=== PATIENT | female | born 1995 ===

== ENCOUNTER 2016-10-18 17:54 | Emergency (ER) | payer MEDICAID ==
[2016-10-18 18:24] VITALS: RESP 18; O2SAT 100
[2016-10-18] MEDS ORDERED: Belladonna-Phenobarbital PO STA (19:56)
[2016-10-18] MEDS ORDERED: Lidocaine 2% Viscous 100 ml PO STA (19:56)
[2016-10-18] MEDS ORDERED: Sodium Chloride 0.9% 500 ML IV ONE ×2 (19:56→20:14)
[2016-10-18] MEDS ORDERED: Aluminum Hydroxide/Magnesium Hydroxide Susp (30 mL) PO STA (19:56)
--- NOTE | 2016-10-18 20:00 | C.PDOC ---
History Of Present Illness 20 yr old female presents to the ER with complaints of epigastric pain which radiates up to the chest for the past 2 days. Patient states she never had this type of pain before and is associated with nausea. Patient denies trauma, fever , SOB, vomiting, diarrhea, dysuria, hematuria, back pain, weakness or numbness. Time Seen by Provider: 10/18/16 19:36 Chief Complaint (Nursing): Abdominal Pain History Per: Patient History/Exam Limitations: no limitations Onset/Duration Of Symptoms: Days (2) Current Symptoms Are (Timing): Still Present Past Medical History Reviewed: Historical Data, Nursing Documentation, Vital Signs Vital Signs: Last Vital Signs Temp 98.4 F 10/18/16 21:41 Pulse 72 10/18/16 21:41 Resp 18 10/18/16 21:41 BP 92/62 L 10/18/16 21:41 Pulse Ox 100 10/18/16 21:41 Family History: States: No Known Family Hx - Social History Hx Alcohol Use: No Hx Substance Use: No - Immunization History Hx Tetanus Toxoid Vaccination: No Hx Influenza Vaccination: No Hx Pneumococcal Vaccination: No Review Of Systems Except As Marked, All Systems Reviewed And Found Negative. Constitutional: Negative for: Fever Cardiovascular: Positive for: Chest Pain Respiratory: Negative for: Shortness of Breath Gastrointestinal: Positive for: Nausea, Abdominal Pain (Epigastric ). Negative for: Vomiting, Diarrhea Genitourinary: Negative for: Dysuria, Hematuria Musculoskeletal: Negative for: Back Pain Neurological: Negative for: Weakness, Numbness Physical Exam - Physical Exam Appears: Non-toxic, No Acute Distress Skin: Warm, Dry, No Rash Head: Atraumatic, Normacephalic Eye(s): bilateral: Normal Inspection, PERRL, EOMI Oral Mucosa: Moist Neck: Normal, Normal ROM, Supple Chest: Symmetrical, No Tenderness Cardiovascular: Rhythm Regular, No Friction Rub, No Murmur Respiratory: Normal Breath Sounds, No Rales, No Rhonchi, No Stridor, No Wheezing Gastrointestinal/Abdominal: Normal Exam, Soft, No Tenderness, No Guarding, No Rebound Back: Normal Inspection, No CVA Tenderness, No Vertebral Tenderness Extremity: Normal ROM, No Swelling Neurological/Psych: Oriented x3, Normal Speech, Normal Motor, Normal Sensation Gait: Steady ED Course And Treatment - Laboratory Results Result Diagrams: 10/18/16 20:15 10/18/16 20:15 ECG: Interpreted By Me, Viewed By Me ECG Rhythm: Sinus Rhythm ECG Interpretation: No Acute Changes Rate From EC (BPM) O2 Sat by Pulse Oximetry: 100 (RA ) Pulse Ox Interpretation: Normal - Radiology CXR: Interpreted by Me CXR Interpretation: Yes: No Acute Disease. No: Infiltrates Medical Decision Making Medical Decision Making: PLAN: * CXR * CBC * HCG Urine * Urinalysis * PO * Maalox PO * Lidocaine Viscous PO * Pepcid IVP * Zofran IVP * Sodium Chloride IV Urine shows 1+ leuks but pt has no symptoms of dysuria or UTI. On re-exam, the patient reports improvement of symptoms. Lungs remain CTA, heart is RRR, abdomen is soft, non-tender and tolerating PO well. Ambulatory in the ED with steady gait. Follow up with the medical doctor within 1-2 days without fail, Return if worsened. Disposition - Disposition Referrals: Yoni Watkins, CHARLENE, SQL REPORT DEVELOPER [Family Provider] - Disposition: HOME/ ROUTINE Disposition Time: 21:00 Condition: GOOD Additional Instructions: Follow up with the medical doctor within 1-2 days without fail, Return if worsened, Prescriptions: Naproxen [Naprosyn] 500 mg PO BID #20 tab Famotidine [Pepcid] 20 mg PO BID #20 tab Instructions: Gastritis (ED) - Clinical Impression Clinical Impression: Gastritis - PA / TOY PAINTER / Resident Statement MD/DO has reviewed & agrees with the documentation as recorded. - Scribe Statement The provider has reviewed the documentation as recorded by the Scribe Torri Garcia All medical record entries made by the Scribe were at my direction and personally dictated by me. I have reviewed the chart and agree that the record accurately reflects my personal performance of the history, physical exam, medical decision making, and the department course for this patient. I have also personally directed, reviewed, and agree with the discharge instructions and disposition.
[2016-10-18] MEDS ORDERED: Belladonna-Phenobarbital ONE (20:13)
[2016-10-18] MEDS ORDERED: Aluminum Hydroxide/Magnesium Hydroxide Susp (30 mL) ONE (20:13)
[2016-10-18 20:19] LABS: BASO % 0.5 % (0.0-2.0); EOS % 0.7 % (0.0-4.0); HEMATOCRIT 40.7 % (34.0-47.0); LYMPH # 0.9 K/uL (1.0-4.3); LYMPH % 17.7 % (20.0-40.0); MEAN CELL VOLUME 83.1 fL (81.0-99.0); MEAN CORPUSCULAR HEMOGLOBIN 26.7 pg (27.0-31.0); MEAN CORPUSCULAR HGB CONC 32.1 g/dL (33.0-37.0); MEAN PLATELET VOLUME 8.4 fL (7.2-11.7); MONO # 0.6 K/uL (0.0-0.8); MONO % 10.8 % (0.0-10.0); WHITE BLOOD COUNT 5.3 K/uL (4.8-10.8)
[2016-10-18 20:24] LABS: CHLORIDE 95 mmol/L (98-107); RBC URINE 7 /hpf (0-3); SODIUM 137 mmol/L (132-148); URINE BACTERIA FEW (<OCC); URINE BILIRUBIN NEGATIVE (NEGATIVE); URINE BLOOD 2+ (NEGATIVE); URINE COLOR Yellow (YELLOW); URINE GLUCOSE (UA) NORMAL (Normal); URINE KETONE TRACE mg/dL (NEGATIVE); URINE LEUKOCYTE ESTERASE 1+ Leu/uL (Negative); URINE PROTEIN NEGATIVE (NEGATIVE); WBC URINE 15 /hpf (0-5)
[2016-10-18 20:25] LABS: POTASSIUM 3.4 mmol/L (3.6-5.2)
[2016-10-18 20:26] LABS: GFR AFRICAN-AMERICAN > 60
[2016-10-18 20:27] LABS: ALB/GLOB RATIO 1.3 (1.0-2.1); ALKALINE PHOSPHATASE 58 U/L (38-126); ALT/SGPT 18 U/L (9-52); AST/SGOT 18 U/L (14-36); BILIRUBIN,TOTAL 0.6 mg/dL (0.2-1.3); BLOOD UREA NITROGEN 10 mg/dL (7-17); CARBON DIOXIDE 26 mmol/L (22-30); GLUCOSE,RANDOM 82 mg/dL (65-105); TOTAL PROTEIN 7.5 g/dL (6.3-8.3)
[2016-10-18 20:28] LABS: CALCIUM 8.5 mg/dl (8.6-10.4)
[2016-10-18 21:43] VITALS: BP 92/62; PULSE 72; TEMP 98.4
--- NOTE | 2016-10-19 08:17 | RAD ---
PROCEDURE: CHEST RADIOGRAPH, 1 VIEW HISTORY: Epigastric abdominal pain COMPARISON: None available. FINDINGS: LUNGS: Clear. PLEURA: No pneumothorax or pleural fluid seen. CARDIOVASCULAR: Normal. OSSEOUS STRUCTURES: No significant abnormalities. VISUALIZED UPPER ABDOMEN: Normal. OTHER FINDINGS: None. IMPRESSION: No active disease.
== END 2016-10-18 21:43 | disposition home or self-care (01) ==
LOC: C.ER 17:54
DX: K29.70 Gastritis, unspecified, without bleeding (principal)
CPT/HCPCS: 71010; 80053; 81001; 83690; 84703; 85025; 96374; 96375; 99285; J1885; J2405; J7040

== ENCOUNTER 2017-02-07 22:41 | Emergency (ER) | payer MEDICAID ==
[2017-02-07 22:49] VITALS: O2SAT 99
--- NOTE | 2017-02-07 23:04 | C.PDOC ---
History Of Present Illness 21 year old female who presents to the ER with a complaint of left sided chest pain since yesterday. Patient describes it as sharp left sided pain, at times in her neck as well. Denies fever, chills, SOB, or other complaints. no inciting factors. no recent travel/sx/h/of blood clot Time Seen by Provider: 02/07/17 23:00 Chief Complaint (Nursing): Chest Pain History Per: Patient History/Exam Limitations: no limitations Onset/Duration Of Symptoms: Hrs, Sudden Onset Current Symptoms Are (Timing): Still Present Quality: Sharp Associated Symptoms: denies: Nausea, Dyspnea, Diaphoresis Modifying Factors: None Exacerbating Factors: None Alleviating Factors: None Recent travel outside of the [place]: No Past Medical History Reviewed: Historical Data, Nursing Documentation, Vital Signs Vital Signs: Last Vital Signs Temp 98.7 F 02/07/17 22:46 Pulse 85 02/07/17 22:46 Resp 14 02/07/17 22:46 BP 116/79 02/07/17 22:46 Pulse Ox 99 02/07/17 23:57 - Medical History PMH: No Chronic Diseases Surgical History: No Surg Hx Family History: States: Unknown Family Hx - Social History Hx Alcohol Use: No Hx Substance Use: No - Immunization History Hx Tetanus Toxoid Vaccination: No Hx Influenza Vaccination: No Hx Pneumococcal Vaccination: No Review Of Systems Except As Marked, All Systems Reviewed And Found Negative. Constitutional: Negative for: Fever, Chills Cardiovascular: Positive for: Chest Pain Respiratory: Negative for: Shortness of Breath Physical Exam - Physical Exam Appears: Non-toxic, No Acute Distress Skin: Normal Color, Warm, Dry Head: Atraumatic, Normacephalic Oral Mucosa: Moist Chest: Symmetrical, Tenderness (Left sided) Cardiovascular: Rhythm Regular, No Murmur Respiratory: Normal Breath Sounds, No Rales, No Rhonchi, No Wheezing Gastrointestinal/Abdominal: Soft, No Tenderness Neurological/Psych: Oriented x3, Normal Speech, Normal Cognition ED Course And Treatment - Laboratory Results Result Diagrams: 02/07/17 23:10 02/07/17 23:10 ECG: Interpreted By Me, Viewed By Me ECG Rhythm: Sinus Rhythm Interpretation Of ECG: No st/t wave changes, PERC negative Rate From EC O2 Sat by Pulse Oximetry: 99 (Room air) Pulse Ox Interpretation: Normal Medical Decision Making Medical Decision Making: Impression: 21 year old female with chest wall tenderness. Plan: * Blood work * CXR * Urinalysis * Tylenol * PERC neg. labs unremarkable cxr neg as read by me. pt comfortable. pain improved. speaking full sentneces innad. stable for d/c pt denies urianry symptoms, suspect dirty sample Disposition - Disposition Referrals: Orion Diaz MD [Staff Provider] - Disposition: HOME/ ROUTINE Disposition Time: 23:56 Condition: STABLE Additional Instructions: please follow up with your doctor/specialist. return to er with worsening symptoms or concerns. Instructions: Chest Pain (ED) - Clinical Impression Clinical Impression: Chest pain - Scribe Statement The provider has reviewed the documentation as recorded by the Scribmaddy Hwang All medical record entries made by the Scribe were at my direction and personally dictated by me. I have reviewed the chart and agree that the record accurately reflects my personal performance of the history, physical exam, medical decision making, and the department course for this patient. I have also personally directed, reviewed, and agree with the discharge instructions and disposition.
[2017-02-07 23:13] LABS: BASO # 0.1 K/uL (0.0-0.2); BASO % 0.6 % (0.0-2.0); EOS # 0.1 K/uL (0.0-0.7); EOS % 0.7 % (0.0-4.0); HEMOGLOBIN 12.9 g/dL (11.0-16.0); LYMPH # 2.2 K/uL (1.0-4.3); LYMPH % 26.6 % (20.0-40.0); MEAN CELL VOLUME 83.8 fL (81.0-99.0); MEAN CORPUSCULAR HEMOGLOBIN 27.5 pg (27.0-31.0); MEAN CORPUSCULAR HGB CONC 32.8 g/dL (33.0-37.0); MONO # 0.6 K/uL (0.0-0.8); MONO % 7.7 % (0.0-10.0); NEUT # 5.4 K/uL (1.8-7.0); NEUT % 64.4 % (50.0-75.0); NRBC % 0.1 % (0.0-2.0); RBC 4.69 Mil/uL (3.80-5.20); RED CELL DISTRIBUTION WIDTH 13.2 % (11.5-14.5)
[2017-02-07 23:15] LABS: WHITE BLOOD COUNT 8.4 K/uL (4.8-10.8)
[2017-02-07 23:22] LABS: INR 1.1; PROTHROMBIN TIME 12.2 SECONDS (9.7-12.2)
[2017-02-07 23:45] LABS: ALBUMIN 4.2 g/dL (3.5-5.0)
[2017-02-07 23:46] LABS: SQUAMOUS EPITHIAL 15 /hpf (0-5); URINE BACTERIA FEW (<OCC); URINE BILIRUBIN NEGATIVE (NEGATIVE); URINE BLOOD NEGATIVE (NEGATIVE); URINE CLARITY Hazy (Clear); URINE COLOR Yellow (YELLOW); URINE GLUCOSE (UA) NORMAL (Normal); URINE LEUKOCYTE ESTERASE 2+ Leu/uL (Negative); URINE NITRATE NEGATIVE (NEGATIVE); URINE PROTEIN NEGATIVE (NEGATIVE); URINE UROBILINOGEN NORMAL mg/dL (0.2-1.0)
[2017-02-07 23:47] LABS: HCG,QUALITATIVE URINE NEGATIVE (NEGATIVE)
[2017-02-07 23:48] LABS: AST/SGOT 18 U/L (14-36); GFR AFRICAN-AMERICAN > 60; GFR NON-AFRICAN AMERICAN > 60
[2017-02-07 23:49] LABS: ALB/GLOB RATIO 1.3 (1.0-2.1); ALT/SGPT 25 U/L (9-52); BLOOD UREA NITROGEN 11 mg/dL (7-17); CALCIUM 9.5 mg/dl (8.6-10.4)
[2017-02-08 00:20] VITALS: BP 101/65; PULSE 60; RESP 16; TEMP 98.3
--- NOTE | 2017-02-08 07:36 | RAD ---
HISTORY: SOB COMPARISON: Chest x-ray performed 10/18/16 TECHNIQUE: Chest PA and lateral FINDINGS: LUNGS: No focal consolidation. Please note that chest x-ray has limited sensitivity for the detection of pulmonary masses. PLEURA: No significant pleural effusion identified. No definite pneumothorax . CARDIOVASCULAR: The cardiomediastinal silhouette appears within normal limits of size. OSSEOUS STRUCTURES: No acute osseous abnormality identified. VISUALIZED UPPER ABDOMEN: Unremarkable. OTHER FINDINGS: None. IMPRESSION: No focal consolidation, significant pleural effusion, or definite pneumothorax identified.
== END 2017-02-08 00:20 | disposition home or self-care (01) ==
LOC: C.ER 22:41
DX: R07.89 Other chest pain (principal)

== ENCOUNTER → 2017-08-09 22:22 | Emergency (ER) | payer MEDICAID | END | disposition left against medical advice (07) | LOC: C.ER 22:22 | DX: Z02.89 Encounter for other administrative examinations (principal); R05 Cough ==

== ENCOUNTER 2017-08-10 19:14 | Emergency (ER) | payer MEDICAID ==
[2017-08-10] MEDS ORDERED: Sodium Chloride 0.9% 1,000 ML ONE (19:55)
--- NOTE | 2017-08-10 20:06 | C.PDOC ---
History Of Present Illness 21 y/o female presents to the ER complaining of left-sided abdominal pain which has been present since yesterday. Patient reports that the pain is sharp and radiates to her groin. Patient is complaining of mild nausea and dysuria. Patient denies any fever and diarrhea. Chief Complaint (Nursing): Abdominal Pain History Per: Patient History/Exam Limitations: no limitations Onset/Duration Of Symptoms: Days Current Symptoms Are (Timing): Still Present Severity: Moderate Quality Of Discomfort: Sharp Associated Symptoms: Nausea. denies: Vomiting, Diarrhea Past Medical History Reviewed: Historical Data, Nursing Documentation, Vital Signs Vital Signs: Last Vital Signs Temp 98.4 F 08/10/17 19:23 Pulse 93 H 08/10/17 19:23 Resp 16 08/10/17 19:23 BP 115/79 08/10/17 19:23 Pulse Ox 100 08/10/17 22:37 - Medical History PMH: No Chronic Diseases Surgical History: No Surg Hx Family History: States: No Known Family Hx - Social History Hx Alcohol Use: No Hx Substance Use: No - Immunization History Hx Tetanus Toxoid Vaccination: No Hx Influenza Vaccination: No Hx Pneumococcal Vaccination: No Review Of Systems Except As Marked, All Systems Reviewed And Found Negative. Constitutional: Negative for: Fever, Chills Gastrointestinal: Positive for: Nausea, Abdominal Pain. Negative for: Vomiting , Diarrhea Genitourinary: Positive for: Dysuria Physical Exam - Physical Exam Appears: Non-toxic, No Acute Distress Skin: Normal Color, Warm Head: Atraumatic, Normacephalic Eye(s): bilateral: Normal Inspection, PERRL Nose: Normal Oral Mucosa: Moist Neck: Supple Chest: Symmetrical Cardiovascular: Rhythm Regular Respiratory: Normal Breath Sounds, No Accessory Muscle Use, No Rales, No Rhonchi , No Wheezing Gastrointestinal/Abdominal: Normal Exam, Soft, Tenderness (tenderness on left side of abdomen and periumbilical region) Extremity: Normal ROM Neurological/Psych: Oriented x3, Normal Speech, Normal Cognition, Normal Motor, Normal Sensation ED Course And Treatment - Laboratory Results Result Diagrams: 08/10/17 20:02 08/10/17 20:02 O2 Sat by Pulse Oximetry: 100 (RA) Pulse Ox Interpretation: Normal Medical Decision Making Medical Decision Making: Plan: -- Abd. & Pelv. CT --Labs Disposition Counseled Patient/Family Regarding: Diagnosis - Disposition Referrals: [facility] [Outside] Disposition: HOME/ ROUTINE Disposition Time: 22:36 Condition: STABLE Prescriptions: Ciprofloxacin [Cipro] 1 tab PO BID #14 tab Ibuprofen [Motrin] 1 tab PO TID PRN #30 tab PRN Reason: Pain Instructions: Urinary Tract Infection in Women (DC) Forms: [facility] (Romanian) - POA Present On Arrival: None - Clinical Impression Clinical Impression: Urinary tract infection - Scribe Statement The provider has reviewed the documentation as recorded by the Akila Welch Provider Attestation: All medical record entries made by the Katiaibe were at my direction and personally dictated by me. I have reviewed the chart and agree that the record accurately reflects my personal performance of the history, physical exam, medical decision making, and the department course for this patient. I have also personally directed, reviewed, and agree with the discharge instructions and disposition.
[2017-08-10 20:07] LABS: BASO % 0.6 % (0.0-2.0); EOS # 0.1 K/uL (0.0-0.7); EOS % 3.1 % (0.0-4.0); HEMOGLOBIN 12.9 g/dL (11.0-16.0); LYMPH # 1.2 K/uL (1.0-4.3); LYMPH % 32.2 % (20.0-40.0); MEAN CORPUSCULAR HEMOGLOBIN 27.9 pg (27.0-31.0); MEAN CORPUSCULAR HGB CONC 33.3 g/dL (33.0-37.0); MONO # 0.4 K/uL (0.0-0.8); MONO % 10.2 % (0.0-10.0); NEUT % 53.9 % (50.0-75.0); RBC 4.61 Mil/uL (3.80-5.20); RED CELL DISTRIBUTION WIDTH 13.5 % (11.5-14.5); WHITE BLOOD COUNT 3.7 K/uL (4.8-10.8)
[2017-08-10 20:14] LABS: SQUAMOUS EPITHIAL 2 /hpf (0-5); URINE BACTERIA RARE (<OCC); URINE BILIRUBIN 1+ (NEGATIVE); URINE BLOOD 3+ (NEGATIVE); URINE CLARITY Clear (Clear); URINE COLOR Yellow (YELLOW); URINE GLUCOSE (UA) NORMAL (Normal); URINE LEUKOCYTE ESTERASE NEG Leu/uL (Negative); URINE NITRATE NEGATIVE (NEGATIVE); URINE PROTEIN 1+ mg/dL (NEGATIVE)
[2017-08-10 20:21] LABS: ALB/GLOB RATIO 1.1 (1.0-2.1); ALBUMIN 4.1 g/dL (3.5-5.0); ALT/SGPT 22 U/L (9-52); AST/SGOT 21 U/L (14-36); BLOOD UREA NITROGEN 11 mg/dL (7-17); CALCIUM 8.7 mg/dl (8.6-10.4); GFR AFRICAN-AMERICAN > 60; GFR NON-AFRICAN AMERICAN > 60; LIPASE 98 U/L (23-300)
--- NOTE | 2017-08-10 21:29 | CT ---
EXAM: CT Abdomen and Pelvis Without Intravenous Contrast CLINICAL HISTORY: 21 years old, female; Pain and signs and symptoms; Other: Dysuria; Abdominal pain; Localized; Left; Additional info: Left flank pain/ dysuria TECHNIQUE: Axial computed tomography images of the abdomen and pelvis without intravenous contrast. All CT scans at this facility use one or more dose reduction techniques, viz.: automated exposure control; ma/kV adjustment per patient size (including targeted exams where dose is matched to indication; i.e. head); or iterative reconstruction technique. Coronal and sagittal reformatted images were created and reviewed. COMPARISON: CT - ABD PELVIS IV CONTRAST ONLY 2017-05-31 23:36 FINDINGS: Lower thorax: No acute findings. ABDOMEN: Liver: Unremarkable. Gallbladder and bile ducts: No calcified stones. No ductal dilation. Pancreas: Unremarkable. No ductal dilation. Spleen: Mild splenomegaly, AP dimension. Adrenals: No mass. Kidneys and ureters: No renal calculi. No hydronephrosis. Stomach and bowel: No definite mural thickening. No obstruction. Appendix: Normal caliber. No inflammation. PELVIS: Bladder: Borderline bladder wall thickening, up to 5 mm. Incomplete distention, limiting evaluation. No stones. Reproductive: Unremarkable as visualized. ABDOMEN and PELVIS: Intraperitoneal space: No significant fluid collection. No free air. Bones/joints: No acute fracture. Soft tissues: Unremarkable. Vasculature: Unremarkable. No aneurysm. Lymph nodes: No pathologically enlarged lymph nodes. IMPRESSION: 1. Mild cystitis vs underdistention. Correlate with urinalysis. 2. Incidental/non-acute findings are described above.
[2017-08-10 22:52] VITALS: BP 118/70; PULSE 81; RESP 20; TEMP 97.1; O2SAT 98
== END 2017-08-10 22:52 | disposition home or self-care (01) ==
LOC: C.ER 19:14
DX: N39.0 Urinary tract infection, site not specified (principal)
CPT/HCPCS: 74176; 80053; 81001; 83690; 84703; 85025; 87086; 96361; 96374; 99284; J1885

== ENCOUNTER 2018-08-21 12:19 | Emergency (ER) | payer MEDICAID, OTHER ==
--- NOTE | 2018-08-21 13:15 | C.PDOC ---
History Of Present Illness 22 y/o cholo, lmp 08/05, one sexual partner, has unprotected sex, c/o vaignal painl, clear vaignal discharge sinc fri with nausea. low back and pain dysuriua. no hx gc. chlmaydia Time Seen by Provider: 08/21/18 12:47 Chief Complaint (Nursing): Female Genitourinary History Per: Patient History/Exam Limitations: no limitations Onset/Duration Of Symptoms: Days Current Symptoms Are (Timing): Still Present Past Medical History Reviewed: Historical Data, Nursing Documentation, Vital Signs Vital Signs: Last Vital Signs Temp 98.0 F 08/21/18 12:33 Pulse 80 08/21/18 12:33 Resp 20 08/21/18 12:33 BP 120/81 08/21/18 12:33 Pulse Ox 99 08/21/18 12:33 - Medical History PMH: No Chronic Diseases Surgical History: No Surg Hx Family History: States: Unknown Family Hx - Social History Hx Alcohol Use: No Hx Substance Use: No - Immunization History Hx Tetanus Toxoid Vaccination: No Hx Influenza Vaccination: No Hx Pneumococcal Vaccination: No Review Of Systems Genitourinary: Positive for: Dysuria, Vaginal Discharge Musculoskeletal: Positive for: Back Pain (lower) Physical Exam - Physical Exam Appears: Non-toxic, No Acute Distress Skin: Normal Color, Warm, Dry Eye(s): bilateral: Normal Inspection Oral Mucosa: Moist Neck: Supple Gastrointestinal/Abdominal: Soft, No Tenderness, No Guarding, No Rebound Pelvic: Vaginal Discharge (beige-white, noted in vault ), No Cervical Motion Tenderness, Adnexal Tenderness (mild, left-sided ) Extremity: Normal ROM, Capillary Refill (less than 2 seconds) Neurological/Psych: Oriented x3, Normal Speech, Normal Cognition ED Course And Treatment O2 Sat by Pulse Oximetry: 99 (on RA) Pulse Ox Interpretation: Normal Medical Decision Making Medical Decision Making: Progress: Urinalysis ordered and GC/Chlamydia swab ordered and reviewed. no cmt on exam, mild left adnexal tenderness. will not tx for sti at this time. await cuture. will give macrobid and metrogel with weld engineer f/u Disposition Counseled Patient/Family Regarding: Studies Performed, Diagnosis, Need For Followup, Rx Given - Disposition Referrals: Emily Carrizales MD [Staff Provider] - Disposition: HOME/ ROUTINE Disposition Time: 14:44 Condition: GOOD Additional Instructions: Drink increased fluids. Recommend no sexual activity until cultures resulted. Use metrogel at bedtime as prescribed. Do not drink anything with alcohol when using metro-gel. Take antibiotic until completed. Follow up with your foundation coordinator in next 1-2 days. Tylenol for pain. Return to ER for nay worse symptoms. Prescriptions: Metronidazole [Metrogel-Vaginal] 1 ea VG HS #7 gel Nitrofurantoin Macrocrystals [Macrobid] 100 mg PO BID #14 cap Instructions: Urinary Tract Infection, Adult (DC), Vaginitis Forms: [facility] (Gambian), General Discharge Instructions - Clinical Impression Clinical Impression: Vaginitis, UTI (urinary tract infection)
[2018-08-21 13:24] LABS: SQUAMOUS EPITHIAL 22 /hpf (0-5); URINE BACTERIA OCC (<OCC); URINE BILIRUBIN NEGATIVE (NEGATIVE); URINE BLOOD 2+ (NEGATIVE); URINE CLARITY Hazy (Clear); URINE COLOR Yellow (YELLOW); URINE GLUCOSE (UA) NORMAL (Normal); URINE LEUKOCYTE ESTERASE 2+ Leu/uL (Negative); URINE PROTEIN 1+ mg/dL (NEGATIVE); URINE UROBILINOGEN NORMAL mg/dL (0.2-1.0)
[2018-08-21 15:05] VITALS: BP 114/79; PULSE 76; RESP 17; TEMP 98.6
[2018-08-21 21:10] VITALS: O2SAT 99
== END 2018-08-21 14:57 | disposition home or self-care (01) ==
LOC: C.ER 12:19
DX: N76.0 Acute vaginitis (principal); N39.0 Urinary tract infection, site not specified

== ENCOUNTER 2018-10-03 16:13 | Emergency (ER) | payer OTHER ==
--- NOTE | 2018-10-03 17:07 | C.PDOC ---
History Of Present Illness 22 y/o female presents to the ER for evaluation of intermittent left sided chest pain which has been present for the past 8 months. Patient describes the pain as stabbing. Patient states that the pain is worse when she wakes up in the morning. She notes that she was evaluated by 2 cardiologists and she had 2 Holter monitor studies. The first study was negative. However, she is still waiting for the results of the second study. She is concerned so she decided to come to the ER regarding her chronic chest pain. She denies any worsening or improvement of the chest pain but denies any current chest pain at this time. Currently, SOB, nausea, vomiting, leg swelling, venous stasis, OCP usage, or hx of blood clots. She denies any trauma or fall. She denies any fever, chills or night sweats. Time Seen by Provider: 10/03/18 17:07 Chief Complaint (Nursing): Chest Pain History Per: Patient History/Exam Limitations: no limitations Onset/Duration Of Symptoms: Days Current Symptoms Are (Timing): Still Present Severity: Moderate Past Medical History Reviewed: Historical Data, Nursing Documentation, Vital Signs Vital Signs: Last Vital Signs Temp 98.5 F 10/03/18 16:25 Pulse 97 H 10/03/18 16:25 Resp 20 10/03/18 16:25 BP 119/78 10/03/18 16:25 Pulse Ox 100 10/03/18 16:25 - Medical History PMH: No Chronic Diseases Other Surgeries: Hx of surgeries Family History: States: No Known Family Hx - Social History Hx Alcohol Use: No Hx Substance Use: No - Immunization History Hx Tetanus Toxoid Vaccination: No Hx Influenza Vaccination: No Hx Pneumococcal Vaccination: No Review Of Systems Constitutional: Negative for: Fever, Chills, Weakness, Malaise Eyes: Negative for: Pain, Vision Change, Conjunctivae Inflammation, Eyelid Inflammation ENT: Negative for: Ear Pain, Ear Discharge, Nose Pain, Nose Congestion, Mouth Pain, Mouth Swelling Cardiovascular: Positive for: Chest Pain (currently resolved). Negative for: Palpitations, Orthopnea, Paroxysmal Noc. Dyspnea, Edema Respiratory: Negative for: Cough, Shortness of Breath, Hemoptysis, SOB with Excertion, Pleuritic Pain, Sputum, Wheezing Gastrointestinal: Negative for: Nausea, Vomiting, Abdominal Pain, Diarrhea, Constipation, Melena Genitourinary: Negative for: Dysuria, Frequency, Hematuria Musculoskeletal: Negative for: Neck Pain, Shoulder Pain, Back Pain Skin: Negative for: Rash, Lesions Neurological: Negative for: Weakness, Numbness Physical Exam - Physical Exam Appears: Well, Non-toxic, No Acute Distress Skin: Normal Color, Warm, Dry Head: Atraumatic, Normacephalic Eye(s): bilateral: Normal Inspection, PERRL, EOMI Ear(s): Bilateral: Normal Nose: Normal, No Flaring, No Discharge Oral Mucosa: Moist Tongue: Normal Appearing, No Swelling, No Lesions Lips: Normal Appearing Teeth: Normal Dentition Gingiva: Normal Appearing Throat: Normal, No Erythema, No Exudate Neck: Normal, Normal ROM, Trachea Midline, Supple, Other (no meningeal signs) Chest: Symmetrical Cardiovascular: Rhythm Regular, No Murmur, No JVD Respiratory: Normal Breath Sounds, No Rales, No Rhonchi, No Wheezing Gastrointestinal/Abdominal: Normal Exam, Soft, No Tenderness, No Distention, No Guarding, No Rebound Back: Normal Inspection, No CVA Tenderness, No Vertebral Tenderness Extremity: Normal ROM, No Tenderness Extremity: Bilateral: Atraumatic Neurological/Psych: Oriented x3, Normal Speech, Normal Cognition, Normal Motor Gait: Steady ED Course And Treatment - Laboratory Results Result Diagrams: 10/03/18 17:41 10/03/18 17:41 O2 Sat by Pulse Oximetry: 100 (RA) Pulse Ox Interpretation: Normal Medical Decision Making Medical Decision Makin22 y/o female presents to the ER for evaluation of intermittent left sided chest pain which has been present for the past 8 months. Stabbing chest pain, without radiation or history of trauma. Pain the morning consistent w/ MSK type pain. No family hx of heart issues or RF in patient. Likely non-cardiac type chest pain as pt has also been seen by two cardiologists and has had negative workup. non cardiac chest pain low pretest well, perc out Plan: --Labs --ECG --CXR EKG NSR 88 bpm no STEMI 1824 labs unremarkable CXR unremarkable per my read Remains chest pain free clear for d/c home with return indications and f/u Disposition - Disposition Referrals: [facility] [Outside] [facility] [Outside] [facility] [Outside] Yumiko Nunn MD [Staff Provider] - Sergei Patricio MD, PhD [Staff Provider] - Disposition: HOME/ ROUTINE Disposition Time: 18:24 Condition: GOOD Additional Instructions: POLLY ROBERTSON, thank you for letting us take care of you today. Your provider was Rolando Piedra and you were treated for CHEST PAIN. The emergency medical care you received today was directed at your acute symptoms. If you were prescribed any medication, please fill it and take as directed. It may take several days for your symptoms to resolve. Return to the Emergency Department if your symptoms worsen, do not improve, or if you have any other problems. Please contact your doctor or call one of the physicians/clinics you have been referred to that are listed on the Patient Visit Information form that is included in your discharge packet. Bring any paperwork you were given at discharge with you along with any medications you are taking to your follow up visit. Our treatment cannot replace ongoing medical care by a primary care provider outside of the emergency department. Thank you for allowing the [facility] team to be part of your care today. If you had an X-Ray or CT scan: A Radiologist will review the ED reading if any change in treatment is needed we will contact you. If you had a blood, urine, or wound culture: It will take several days for the results, if any change in treatment is needed we will contact you. If you had an STI test: It will take 48 hours for the results. Please call after 1 week if you have not heard back. Instructions: Costochondritis, Chest Pain Forms: [facility] (Sami) - Clinical Impression Clinical Impression: Chest pain - Scribe Statement The provider has reviewed the documentation as recorded by the Akila Welch Provider Attestation: All medical record entries made by the Katiaibe were at my direction and per sonally dictated by me. I have reviewed the chart and agree that the record accurately reflects my personal performance of the history, physical exam, medical decision making, and the department course for this patient. I have also personally directed, reviewed, and agree with the discharge instructions and disposition.
[2018-10-03 17:53] LABS: BASO % 0.3 % (0.0-2.0); EOS % 0.4 % (0.0-4.0); HEMOGLOBIN 13.3 g/dL (11.0-16.0); LYMPH # 1.4 K/uL (1.0-4.3); LYMPH % 20.6 % (20.0-40.0); MEAN CORPUSCULAR HEMOGLOBIN 27.7 pg (27.0-31.0); MEAN CORPUSCULAR HGB CONC 31.9 g/dL (33.0-37.0); MEAN PLATELET VOLUME 9.3 fL (7.2-11.7); MONO # 0.4 K/uL (0.0-0.8); MONO % 5.9 % (0.0-10.0); NEUT # 5.1 K/uL (1.8-7.0); NEUT % 72.8 % (50.0-75.0); NRBC % 0.1 % (0.0-2.0); RBC 4.79 Mil/uL (3.80-5.20); RED CELL DISTRIBUTION WIDTH 13.1 % (11.5-14.5)
[2018-10-03 18:09] LABS: ALB/GLOB RATIO 1.5 (1.0-2.1); ALBUMIN 4.8 g/dL (3.5-5.0); ALT/SGPT 16 U/L (9-52); AST/SGOT 19 U/L (14-36); BLOOD UREA NITROGEN 10 mg/dL (7-17); CALCIUM 9.6 mg/dl (8.6-10.4); GFR NON-AFRICAN AMERICAN > 60
--- NOTE | 2018-10-03 18:09 | RAD ---
HISTORY: cp COMPARISON: Chest x-ray performed 02/07/17 TECHNIQUE: Chest PA and lateral FINDINGS: LUNGS: No focal consolidation. Please note that chest x-ray has limited sensitivity for the detection of pulmonary masses. PLEURA: No significant pleural effusion identified. No definite pneumothorax . CARDIOVASCULAR: Heart size appears within normal limits. No atherosclerotic calcification present. OSSEOUS STRUCTURES: No acute osseous abnormality identified. VISUALIZED UPPER ABDOMEN: Unremarkable. OTHER FINDINGS: None. IMPRESSION: No focal consolidation.
[2018-10-03 19:24] VITALS: BP 105/58; PULSE 69; RESP 17; TEMP 98.1
[2018-10-03 20:57] VITALS: O2SAT 100
--- NOTE | 2018-10-04 12:34 | CARD ---
APPROVED REPORT Date of service: 10/03/2018 EKG Measurement Heart [id number] <Conclusion> Normal sinus rhythm Normal ECG
== END 2018-10-03 19:24 | disposition home or self-care (01) ==
LOC: C.ER 16:13
DX: R07.9 Chest pain, unspecified (principal)